=== PATIENT | female | born 2000 | race African-American/Black ===

== ENCOUNTER 2018-02-08 15:23 | Emergency (ER) | payer OTHER ==
[2018-02-08 16:05] VITALS: BP 111/74
--- NOTE | 2018-02-08 16:17 | UC ---
Hand/Wrist HPI - HPI Summary HPI Summary: 17 yo female presents with LEFT thumb pain for the last 2 days. She tells me that 2 days ago she crushed her left thumb in between two arms of a chair. Since that time has had pain in her thumb, but pain is improving. Mild decreased flexion due to pain. Has been taking ibuprofen with good relief. Denies numbness or tingling. - History Of Current Complaint Chief Complaint: UCUpperExtremity Stated Complaint: LEFT THUMB INJURY Time Seen by Provider: 02/08/18 16:17 Hx Obtained From: Patient Hx Last Menstrual Period: 02/02/18 Onset/Duration: Sudden Onset Severity Initially: Severe Severity Currently: Moderate Pain Intensity: 6 Pain Scale Used: 0-10 Numeric - Allergies/Home Medications Allergies/Adverse Reactions: Allergies Allergy/AdvReac Type Severity Reaction Status Date / Time No Known Allergies Allergy Verified 02/08/18 15:59 Home Medications: Home Medications NK [No Home Medications Reported] 02/08/18 [History Confirmed 02/08/18] PMH/Surg Hx/FS Hx/Imm Hx - Additional Past Medical History Additional PMH: None - Surgical History Surgical History: None - Family History Known Family History: Positive: None - Social History Occupation: Student Lives: With Family Alcohol Use: None Substance Use Type: None Smoking Status (MU): Never Smoked Tobacco Review of Systems Constitutional: Negative Skin: Negative Respiratory: Negative Cardiovascular: Negative Neurovascular: Negative Musculoskeletal: Other: - Left thumb pain Neurological: Negative Psychological: Negative All Other Systems Reviewed And Are Negative: Yes Physical Exam - Summary Physical Exam Summary: GENERAL: NAD. WDWN. No pain distress. SKIN: No rashes, sores, lesions, or open wounds. CHEST: No accessory muscle use. Breathing comfortably and in no distress. CV: Pulses intact radial and ulnar. Cap refill <2seconds MSK: LEFT THUMB: Mild TTP over MCP. FROM, but pain with hyperflexion. Good opposition. Strength 5/5 including leadership program associate strength. No edema or obvious bony deformities. No snuffbox tenderness. NEURO: Alert. Sensations intact hand and all fingers. PSYCH: Age appropriate behavior. Triage Information Reviewed: Yes Vital Signs: Initial Vital Signs Temp 97.9 F 02/08/18 16:00 Pulse 72 02/08/18 16:00 Resp 18 02/08/18 16:00 BP 111/74 02/08/18 16:00 Pulse Ox 100 02/08/18 16:00 Vital Signs Reviewed: Yes Hand/Wrist Course/Dx - Course Course Of Treatment: XR: IMPRESSION: No fracture of the left thumb is noted. Pt advised to RICE and continue with ibuprofen. She was offerred a thumb spica splint, but declined. F/u prn - Differential Dx/Diagnosis Provider Diagnoses: Left thumb pain Discharge - Sign-Out/Discharge Documenting (check all that apply): Patient Departure All imaging exams completed and their final reports reviewed: Yes - Discharge Plan Condition: Stable Disposition: HOME Patient Education Materials: Contusion in Adults (ED) Referrals: No Primary Care Phys,NOPCP [Primary Care Provider] - Additional Instructions: If you develop a fever, shortness of breath, chest pain, new or worsening symptoms - please call your PCP or go to the ED. 1) Rest, Ice, and elevate your thumb as much as possible 2) If your pain persist - please be rechecked 3) Your X-Ray today was normal - Billing Disposition and Condition Condition: STABLE Disposition: Home
--- NOTE | 2018-02-08 16:37 | RAD ---
Indication: Left thumb pain. 3 views of left thumb demonstrates no fracture. No other bone or joint abnormality is noted. IMPRESSION: No fracture of the left thumb is noted.
== END 2018-02-08 16:48 | disposition home or self-care (01) ==
LOC: UCCORT 15:23
DX: M79.645 Pain in left finger(s) (principal)
CPT/HCPCS: 99201; G0463

== ENCOUNTER 2018-07-20 18:39 | Emergency (ER) | payer OTHER ==
[2018-07-20 19:36] VITALS: BP 131/88
[2018-07-20] MEDS ORDERED: Albuterol HFA INHALER* 8 gm MDI INH ONE (20:29)
[2018-07-20] MEDS ORDERED: Amoxicillin PO (*) 500 MG CAP PO ONE (20:29)
[2018-07-20] MEDS ORDERED: predniSONE TAB* 20 MG PO ONE (20:29)
--- NOTE | 2018-07-20 20:37 | UC ---
Respiratory Complaint HPI - HPI Summary HPI Summary: 17 yo female with 5 day hx of f/c (tactile) as well as cough she has a sore throat which occurs when she coughs - History of Current Complaint Chief Complaint: UCGeneralIllness Stated Complaint: SORE THROAT/COUGH Time Seen by Provider: 07/20/18 20:23 Hx Obtained From: Patient Hx Last Menstrual Period: 07/13/18 Onset/Duration: Gradual Onset Severity Initially: Mild Severity Currently: Moderate Pain Intensity: 6 Pain Scale Used: 0-10 Numeric Character: Cough: Nonproductive Aggravating Factors: Exertion, Deep Breaths Alleviating Factors: Nothing Associated Signs And Symptoms: Positive: Fever, Chills - Allergies/Home Medications Allergies/Adverse Reactions: Allergies Allergy/AdvReac Type Severity Reaction Status Date / Time No Known Allergies Allergy Verified 07/20/18 19:36 PMH/Surg Hx/FS Hx/Imm Hx Previously Healthy: Yes - Surgical History Surgical History: None - Family History Known Family History: Positive: Hypertension - Social History Alcohol Use: None Substance Use Type: None Smoking Status (MU): Never Smoked Tobacco Review of Systems All Other Systems Reviewed And Are Negative: Yes Constitutional: Positive: Fever, Chills, Fatigue Skin: Positive: Negative Eyes: Positive: Negative ENT: Positive: Sore Throat Respiratory: Positive: Cough Cardiovascular: Positive: Negative Gastrointestinal: Positive: Negative Genitourinary: Positive: Negative Motor: Positive: Negative Neurovascular: Positive: Negative Musculoskeletal: Positive: Negative Neurological: Positive: Negative Psychological: Positive: Negative Physical Exam Triage Information Reviewed: Yes Appearance: Well-Appearing, No Pain Distress, Well-Nourished Vital Signs: Initial Vital Signs Temp 99.5 F 07/20/18 19:31 Pulse 96 07/20/18 19:31 Resp 16 07/20/18 19:31 BP 131/88 07/20/18 19:31 Pulse Ox 99 07/20/18 19:31 Vital Signs Reviewed: Yes Eyes: Positive: Conjunctiva Clear ENT: Positive: Hearing grossly normal, Pharyngeal erythema, TMs normal, Uvula midline. Negative: Nasal congestion, Nasal drainage, Tonsillar swelling, Tonsillar exudate, Trismus, Muffled voice, Hoarse voice, Sinus tenderness Dental Exam: Normal Neck: Positive: Supple, Nontender, No Lymphadenopathy Respiratory: Positive: No respiratory distress, No accessory muscle use, Wheezing - with forced expiration, Other: - bronchospastic cough Cardiovascular: Positive: RRR Musculoskeletal: Positive: ROM Intact, No Edema Neurological: Positive: Alert Psychological Exam: Normal Skin Exam: Normal Respiratory Course/Dx - Differential Dx/Diagnosis Provider Diagnosis: Bronchitis with bronchospasm Discharge - Sign-Out/Discharge Documenting (check all that apply): Patient Departure All imaging exams completed and their final reports reviewed: No Studies - Discharge Plan Condition: Stable Disposition: HOME Prescriptions: Amoxicillin PO (*) [Amoxicillin 500 MG CAP*] 500 mg PO BID #14 cap predniSONE [Deltasone 20 MG TAB] 40 mg PO DAILY #8 tab Patient Education Materials: Acute Bronchitis (ED), How to Use a Metered-Dose Inhaler and a Spacer (ED) Additional Instructions: use inhaler as directed tylenol recheck for worsening symptoms or if not better in 4 days - Billing Disposition and Condition Condition: STABLE Disposition: Home
== END 2018-07-20 20:52 | disposition home or self-care (01) ==
LOC: UCCORT 18:39
DX: J20.9 Acute bronchitis, unspecified (principal); J02.9 Acute pharyngitis, unspecified
CPT/HCPCS: 99213; A9270-GY; G0463; J7512